=== PATIENT | male | born 1935 | race Caucasian/White ===

== ENCOUNTER → 2016-11-05 | Outpatient (CLI) | payer MEDICARE | LOC: KOH-I 13:19 | DX: R91.1 Solitary pulmonary nodule (principal) | CPT/HCPCS: 71250 ==

== ENCOUNTER → 2017-01-07 | Outpatient (CLI) | payer MEDICARE ==
[2017-01-07 12:59] LABS: BUN/CREATININE RATIO 19 (0-10)
== END ==
LOC: LAB 11:32
PROVIDERS: Family Medicine
DX: E11.9 Type 2 diabetes mellitus without complications (principal); E78.2 Mixed hyperlipidemia
CPT/HCPCS: 36415; 80053; 80061; 83036

== ENCOUNTER → 2020-09-02 | Outpatient (CLI) | payer MEDICARE, SELFPAY ==
[~2020-09-02] MED LIST: ACETAMINOPHEN500 M1 PO; ALBUTEROL2.5 MG/3 M INH; ALL DAY ALLERGY10 M2 PO; ANORO ELLIPTA1 EACH INH; ASPIRIN CHEWABL81 MG PO; BUSPAR 10MG10 MG PO; DOXYCYCLINE HY100 MG PO; FISH OIL 1,0001 EACH PO; GLUCOPHAGE1000 MG PO; LASIX TAB 20 MG20 MG PO; LOVASTATIN40 MG PO; MEDROL DOSEPAK 24 MG PO; PRINIVIL20 MG PO; PROAIR HFA8.5 GM INH; REQUIP0.25 MG PO; TESSALON PERLE100 MG PO; TRADJENTA5 MG PO; VENTOLIN HFA 66.7 GM INH; VITAMIN D350 MCG PO
[2020-09-02 13:02] LABS: HEMOGLOBIN 12.4 gm/dl (14.0-17.5); RED BLOOD COUNT 4.01 M/UL (4.20-5.50); WHITE BLOOD COUNT 7.2 K/UL (4.5-11.0)
[2020-09-02 13:18] LABS: BUN/CREATININE RATIO 21 (0-10)
== END ==
LOC: LAB 12:27
PROVIDERS: Family Medicine
DX: E78.2 Mixed hyperlipidemia (principal); E55.9 Vitamin D deficiency, unspecified; R09.02 Hypoxemia
CPT/HCPCS: 36415; 36600; 80053; 80061; 82803; 85027

== ENCOUNTER → 2020-11-28 | Outpatient (CLI) | payer MEDICARE ==
[2020-11-28 13:01] LABS: HEMOGLOBIN 11.9 gm/dl (14.0-17.5); RED BLOOD COUNT 3.99 M/UL (4.20-5.50); WHITE BLOOD COUNT 7.4 K/UL (4.5-11.0)
== END ==
LOC: LAB 12:09
PROVIDERS: Family Medicine
DX: D64.9 Anemia, unspecified (principal); E53.8 Deficiency of other specified B group vitamins
CPT/HCPCS: 36415; 82607; 85027

== ENCOUNTER → 2020-12-20 | Outpatient (CLI) | payer MEDICARE | LOC: KOH-I 13:40 | DX: D64.9 Anemia, unspecified (principal); K76.89 Other specified diseases of liver; N20.0 Calculus of kidney | CPT/HCPCS: 74176 ==

== ENCOUNTER → 2021-01-03 | Outpatient (CLI) | payer MEDICARE ==
[2021-01-03 12:29] LABS: BUN/CREATININE RATIO 21 (0-10)
[2021-01-04 11:15] LABS: CREATININE, URINE 87.9 mg/dL (Not Estab.)
== END ==
LOC: LAB 11:31
PROVIDERS: Family Medicine
DX: E11.9 Type 2 diabetes mellitus without complications (principal); E78.2 Mixed hyperlipidemia; E55.9 Vitamin D deficiency, unspecified; D64.9 Anemia, unspecified
CPT/HCPCS: 36415; 80053; 80061; 82043; 82272; 82570; 82728; 83540; 83550; 85045

== ENCOUNTER → 2021-02-06 | Outpatient (CLI) | payer MEDICARE ==
[2021-02-06 12:27] LABS: HEMOGLOBIN 12.1 gm/dl (14.0-17.5); RED BLOOD COUNT 4.11 M/UL (4.20-5.50); WHITE BLOOD COUNT 6.8 K/UL (4.5-11.0)
== END ==
LOC: LAB 11:59
PROVIDERS: Family Medicine
DX: D64.9 Anemia, unspecified (principal)
CPT/HCPCS: 36415; 85027

== ENCOUNTER 2021-04-06 09:34 | Inpatient (IN) | payer MEDICARE, OTHER ==
[~2021-04-06] VITALS: Ht 172.7 cm; Wt 59.0 kg
[~2021-04-06 09:34] MED LIST changes: -ANORO ELLIPTA1 EACH INH; -TESSALON PERLE100 MG PO
[2021-04-06 11:13] LABS: RED BLOOD COUNT 4.11 M/UL (4.20-5.50); WHITE BLOOD COUNT 6.8 K/UL (4.5-11.0)
[2021-04-06 11:38] LABS: BUN/CREATININE RATIO 15 (0-10)
[2021-04-06] MEDS ORDERED: IPRATROPIU0.2 MG/1 M NEB (16:39)
[2021-04-06] MEDS ORDERED: FLONASE ALLER15.8 ML (16:43)
[2021-04-06] MEDS ORDERED: LASIX20 MG PO (16:47)
[2021-04-06] MEDS ORDERED: VITAMIN B-121000 MCG PO (16:47)
[2021-04-06] MEDS ORDERED: ANORO ELLIPTA1 EACH INH (23:37)
[2021-04-06] MEDS ORDERED: TESSALON PERLE100 MG PO (23:48)
--- NOTE | 2021-04-07 02:03 | NUR ---
HOSPITALIST DR. NEVILLE MADE AWARE AT 2100 THAT THE PATIENT HAD AN ELEVATED CKMB AT 8.3 AND A PERCENT MB AT 3.3 NO ORDERS WERE GIVEN AT THIS TIME. --TA
[2021-04-07 02:27] LABS: HEMOGLOBIN 12.3 gm/dl (14.0-17.5); RED BLOOD COUNT 4.21 M/UL (4.20-5.50)
[2021-04-07 02:51] LABS: BUN/CREATININE RATIO 18 (0-10)
[2021-04-08 05:31] LABS: HEMOGLOBIN 12.3 gm/dl (14.0-17.5); RED BLOOD COUNT 4.22 M/UL (4.20-5.50)
[2021-04-08 05:51] LABS: WHITE BLOOD COUNT 12.2 K/UL (4.5-11.0)
[2021-04-08 05:56] LABS: BUN/CREATININE RATIO 28 (0-10)
[2021-04-09 06:34] LABS: RED BLOOD COUNT 4.16 M/UL (4.20-5.50); WHITE BLOOD COUNT 13.1 K/UL (4.5-11.0)
[2021-04-09 08:09] LABS: BUN/CREATININE RATIO 35 (0-10)
[2021-04-10 09:33] LABS: BUN/CREATININE RATIO 39 (0-10)
[2021-04-10 09:57] LABS: HEMOGLOBIN 12.6 gm/dl (14.0-17.5); RED BLOOD COUNT 4.32 M/UL (4.20-5.50); WHITE BLOOD COUNT 15.9 K/UL (4.5-11.0)
[2021-04-11 06:45] LABS: HEMOGLOBIN 11.6 gm/dl (14.0-17.5); RED BLOOD COUNT 4.01 M/UL (4.20-5.50); WHITE BLOOD COUNT 11.8 K/UL (4.5-11.0)
[2021-04-11 07:18] LABS: BUN/CREATININE RATIO 34 (0-10)
[2021-04-11] MEDS ORDERED: MEDROL4 MG PO (10:16)
[2021-04-11] MEDS ORDERED: ZITHROMAX250 MG PO (10:16)
== END 2021-04-11 13:15 | disposition home or self-care (01) | DRG 193 ==
LOC: ER1 09:34 → CDU 13:33 → M/S 13:33
PROVIDERS: Nurse Practitioner; Physician Assistant; Physician Assistant Medical; ADMIT Internal Medicine
DX: J18.9 Pneumonia, unspecified organism (principal); J96.21 Acute and chronic respiratory failure with hypoxia; J96.22 Acute and chronic respiratory failure with hypercapnia; J44.0 Chronic obstructive pulmonary disease with (acute) lower respiratory infection; Z20.822 Contact with and (suspected) exposure to COVID-19; J44.1 Chronic obstructive pulmonary disease with (acute) exacerbation; N18.4 Chronic kidney disease, stage 4 (severe); E11.22 Type 2 diabetes mellitus with diabetic chronic kidney disease; E78.5 Hyperlipidemia, unspecified; I12.9 Hypertensive chronic kidney disease with stage 1 through stage 4 chronic kidney disease, or unspecified chronic kidney disease; F17.210 Nicotine dependence, cigarettes, uncomplicated; E83.42 Hypomagnesemia; G25.81 Restless legs syndrome; F41.9 Anxiety disorder, unspecified; D63.1 Anemia in chronic kidney disease; R00.0 Tachycardia, unspecified; Z79.4 Long term (current) use of insulin; Z87.442 Personal history of urinary calculi; Z98.42 Cataract extraction status, left eye; Z98.41 Cataract extraction status, right eye; Z82.49 Family history of ischemic heart disease and other diseases of the circulatory system; Z80.1 Family history of malignant neoplasm of trachea, bronchus and lung; Z99.81 Dependence on supplemental oxygen
CPT/HCPCS: 36415; 36600; 71045; 80053; 82550; 82553; 82803; 82962; 83036; 83605; 83735; 83874; 84100; 84439; 84443; 84484; 85025; 85027; 87040; 93005; 94640; 94664; 94760; 96365; 96366; 96375; 96376; 99285; G0378; J0360; J0456; J0696; J1650; J2930; J7030; U0002

== ENCOUNTER → 2021-07-28 | Outpatient (CLI) | payer MEDICARE ==
[~2021-07-28] MED LIST changes: +ANORO ELLIPTA1 EACH INH; +FLONASE ALLER15.8 ML; +IPRATROPIU0.2 MG/1 M NEB; +LASIX20 MG PO; +MEDROL4 MG PO; +TESSALON PERLE100 MG PO; +VITAMIN B-121000 MCG PO; +ZITHROMAX250 MG PO
[2021-07-28 12:40] LABS: RED BLOOD COUNT 4.19 M/UL (4.20-5.50); WHITE BLOOD COUNT 6.8 K/UL (4.5-11.0)
[2021-07-28 13:06] LABS: BUN/CREATININE RATIO 28 (0-10)
== END ==
LOC: LAB 11:44
PROVIDERS: Family Medicine
DX: E11.9 Type 2 diabetes mellitus without complications (principal); E55.9 Vitamin D deficiency, unspecified; E53.8 Deficiency of other specified B group vitamins; E78.2 Mixed hyperlipidemia; D64.9 Anemia, unspecified; I10 Essential (primary) hypertension
CPT/HCPCS: 36415; 80053; 80061; 82607; 82728; 83036; 83540; 83550; 84443; 85027; 85045

== ENCOUNTER → 2021-12-26 | Outpatient (CLI) | payer MEDICARE ==
[2021-12-26 11:29] LABS: HEMOGLOBIN 11.7 gm/dl (14.0-17.5); RED BLOOD COUNT 4.21 M/UL (4.20-5.50); WHITE BLOOD COUNT 8.2 K/UL (4.5-11.0)
[2021-12-26 12:05] LABS: BUN/CREATININE RATIO 21 (0-10)
[2021-12-27 11:13] LABS: CREATININE, URINE 66.8 mg/dL (Not Estab.)
== END ==
LOC: LAB 11:01
PROVIDERS: Family Medicine
DX: E11.9 Type 2 diabetes mellitus without complications (principal); E78.2 Mixed hyperlipidemia; E55.9 Vitamin D deficiency, unspecified; E53.8 Deficiency of other specified B group vitamins
CPT/HCPCS: 36415; 80053; 80061; 82043; 82570; 82607; 83036; 83735; 85027

== ENCOUNTER → 2022-03-21 | Outpatient (CLI) | payer MEDICARE ==
[2022-03-21 12:24] LABS: HEMOGLOBIN 11.2 gm/dl (14.0-17.5); RED BLOOD COUNT 4.1 M/UL (4.20-5.50); WHITE BLOOD COUNT 7.7 K/UL (4.5-11.0)
== END ==
LOC: LAB 11:46
PROVIDERS: Family Medicine
DX: D64.9 Anemia, unspecified (principal); J44.9 Chronic obstructive pulmonary disease, unspecified
CPT/HCPCS: 36415; 82728; 83540; 83550; 85025; 85045

== ENCOUNTER → 2022-05-07 | Outpatient (CLI) | payer MEDICARE ==
[2022-05-07 15:12] LABS: HEMOGLOBIN 12.3 gm/dl (14.0-17.5); RED BLOOD COUNT 4.42 M/UL (4.20-5.50); WHITE BLOOD COUNT 8.8 K/UL (4.5-11.0)
[2022-05-07 15:32] LABS: BUN/CREATININE RATIO 24 (0-10)
== END ==
LOC: LAB 14:38
PROVIDERS: Family Medicine
DX: E78.2 Mixed hyperlipidemia (principal); E55.9 Vitamin D deficiency, unspecified; E03.9 Hypothyroidism, unspecified; D50.9 Iron deficiency anemia, unspecified; E53.8 Deficiency of other specified B group vitamins
CPT/HCPCS: 36415; 80053; 80061; 82607; 82728; 83540; 83550; 83735; 84439; 84443; 85025; 85045